=== PATIENT | female | born 1990 | race Caucasian/White ===

== ENCOUNTER 2016-12-19 00:21 | Emergency (ER) | payer MEDICARE, OTHER ==
[~2016-12-19] VITALS: Ht 157.5 cm; Wt 63.5 kg
[~2016-12-19 00:21] MED LIST: IBUPROFEN600 MG ORAL; NKM; PROVERA10 MG ORAL; RANITIDINE HCL150 MG ORAL; ZOFRAN ODT4 MG ORAL
[2016-12-19 01:47] VITALS: BP 120/80
--- NOTE | 2016-12-19 02:19 | Emergency Room Report ---
History of Present Illness General Chief Complaint: Eye Problems Source: Patient Present Illness HPI 26YOF with stye to left lower eyelid for 2 days. C.o irritation. Denies itch, drainage from eye. Denies FB. Doesnt wear contacts. Allergies: Coded Allergies: NO KNOWN DRUG ALLERGIES (Unverified Allergy, Unknown, 09/26/15) Patient History Past Medical History: none Past Surgical History: none Pertinent Family History: none Social History: Denies: alcohol use, drug use, smoking Last Menstrual Period: 11/09/16 Now: No : 0 Immunizations: UTD Reviewed Nursing Documentation: PMH: Agreed, PSxH: Agreed Nursing Documentation-PMH Past Medical History: No Stated History Review of Systems All Other Systems: negative except mentioned in HPI Physical Exam Vital Signs Date Time Temp Pulse Resp B/P Pulse Ox O2 Delivery O2 Flow Rate FiO2 12/19/16 00:30 97.3 93 20 98 Room Air 12/19/16 01:47 120/80 Sp02 EP Interpretation: reviewed, normal General Appearance: normal inspection, well appearing, no apparent distress, alert Head: normocephalic, atraumatic Eyes: bilateral eye EOMI, bilateral eye PERRL, bilateral eye other - Everion of left lower eyelid reveals midline stye Neck: normal inspection, full range of motion, supple, no bony tend Respiratory: normal inspection, lungs clear, normal breath sounds, no respiratory distress, no retraction, no wheezing Cardiovascular #1: regular rate, rhythm, no edema Gastrointestinal: normal inspection, normal bowel sounds, non tender, soft Genitourinary: no CVA tenderness Musculoskeletal: normal inspection, back normal, normal range of motion, Love' s Sign negative Neurologic: normal inspection, alert, oriented x3, responsive, steel erector apprentice III-XII nml as tested, motor strength/tone normal, speech normal Psychiatric: normal inspection, judgement/insight normal, mood/affect normal Skin: normal inspection, normal color, no rash Lymphatic: normal inspection Medical Decision Making Diagnostic Impression: Primary Impression: Hordeolum externum of left lower eyelid ER Course Advised hot towel compress QID for 7 days PMD followup for Optham referral for I&D if no improvement DC Last Vital Signs Date Time Temp Pulse Resp B/P Pulse Ox O2 Delivery O2 Flow Rate FiO2 12/19/16 01:47 97.3 20 120/80 98 Room Air 12/19/16 00:30 93 Status: improved Disposition: HOME, SELF-CARE Condition: Improved Referrals: NOT CHOSEN IPA/MD,REFERRING (PCP) Patient Instructions: Dayana Additional Instructions: - Apply warm compress to lower lid 4x a day for 15minutes at a time - Will resolve in 1 week GILMA DELGADO M.D. December 19, 2016 02:19
== END 2016-12-19 01:47 | disposition home or self-care (01) ==
LOC: EMR 00:49
DX: H00.015 Hordeolum externum left lower eyelid (principal)
CPT/HCPCS: 99282

== ENCOUNTER 2018-07-23 07:53 | Inpatient (IN) | payer MEDICARE, OTHER ==
[2018-07-23] VITALS (7 sets, daily range): BP systolic 118–135; BP diastolic 71–91
[~2018-07-23] VITALS: Ht 154.9 cm; Wt 68.0 kg
[2018-07-23] MEDS ORDERED: Albuterol ud Inhalation HHN ONE ×2 (08:15→10:15)
[2018-07-23] MEDS ORDERED: Ipratropium 0.02% Inh Soln 2.5ml UD HHN ONE (08:15)
[2018-07-23] MEDS ORDERED: Sodium Chloride 500ML 500 ML IV ONE (08:15)
[2018-07-23 08:37] LABS: BASOPHILS % (AUTO) 0.8 % (0.0-2.0); EOSINOPHILS % (AUTO) 5.7 % (0.0-3.0); HEMATOCRIT 40.8 % (37.0-47.0); HEMOGLOBIN 14.2 G/DL (12.0-16.0); LYMPHOCYTES % (AUTO) 14.5 % (20.0-45.0); MEAN CORPUSCULAR VOLUME 87 FL (80-99); MONOCYTES % (AUTO) 4.6 % (1.0-10.0); NEUTROPHILS % (AUTO) 74.4 % (45.0-75.0); PLATELET COUNT 298 K/UL (150-450); RED BLOOD COUNT 4.69 M/UL (4.20-5.40); RED CELL DISTRIBUTION WIDTH 10.8 % (11.6-14.8); WHITE BLOOD COUNT 14.4 K/UL (4.8-10.8)
[2018-07-23 08:44] LABS: ANION GAP 11 mmol/L (5-15); BLOOD UREA NITROGEN 8 mg/dL (7-18); CALCIUM 9.3 MG/DL (8.5-10.1); CARBON DIOXIDE 23 MMOL/L (21-32); CHLORIDE 104 MMOL/L (98-107); CREATININE 0.7 MG/DL (0.55-1.30); POTASSIUM 3.9 MMOL/L (3.5-5.1); SODIUM 138 MMOL/L (136-145)
[2018-07-23 08:57] LABS: ALANINE AMINOTRANSFERASE 77 U/L (12-78); ALBUMIN 4.1 G/DL (3.4-5.0); ALBUMIN/GLOBULIN RATIO 0.9 (1.0-2.7); ALKALINE PHOSPHATASE 78 U/L (46-116); ASPARTATE AMINO TRANSFERASE 28 U/L (15-37); BILIRUBIN,TOTAL 0.3 MG/DL (0.2-1.0); CREATINE KINASE 94 U/L (26-308)
--- NOTE | 2018-07-23 09:07 | Diagnostic Imaging Report ---
Indication: Shortness of breath Technique: One view of the chest Comparison: none Findings: Lungs and pleural spaces are clear. Heart size is normal Impression: No acute process
--- NOTE | 2018-07-23 09:26 | Emergency Room Report ---
History of Present Illness General Chief Complaint: Dyspnea/Respdistress Source: Patient Present Illness HPI Patient persist with complaints of 2 weeks of worsening upper respiratory infection symptoms runny nose cough over the past few days now she has had worsening breathing sensation wheezing Denies any previous history of asthma or lung issues Also has some midsternal heaviness with the cough Denies any neck pain or photophobia Intermittent fevers and chills Denies any recent travel denies any dysuria frequency Allergies: Coded Allergies: NO KNOWN DRUG ALLERGIES (Unverified Allergy, Unknown, 09/26/15) Patient History Past Medical History: see triage record Pertinent Family History: none Now: No Reviewed Nursing Documentation: PMH: Agreed; PSxH: Agreed Nursing Documentation-PMH Past Medical History: No History, Except For Review of Systems All Other Systems: negative except mentioned in HPI Physical Exam Vital Signs Date Time Temp Pulse Resp B/P (MAP) Pulse Ox O2 Delivery O2 Flow Rate FiO2 07/23/18 07:56 97.9 90 20 117/76 92 Room Air 07/23/18 08:05 3.0 07/23/18 08:05 98 Sp02 EP Interpretation: reviewed, abnormal - Initial pulse ox on room air is interpreted as low, after breathing treatment saturation is at 98% which is normal General Appearance: mild distress - Appears uncomfortable Head: normocephalic, atraumatic Eyes: bilateral eye PERRL, bilateral eye EOMI ENT: hearing grossly normal, normal pharynx, TMs + canals normal, uvula midline Neck: full range of motion, supple, no meningismus, no bony tend Respiratory: no accessory muscle use, wheezing, other - Tachypneic Cardiovascular #1: normal peripheral pulses, regular rate, rhythm, no edema, no gallop, no JVD, no murmur Gastrointestinal: normal bowel sounds, non tender, soft, no mass, no organomegaly, non-distended, no guarding, no hernia, no pulsatile mass, no rebound Genitourinary: no CVA tenderness Musculoskeletal: normal inspection Neurologic: oriented x3, responsive, master at arms III-XII nml as tested, motor strength/ tone normal, sensory intact Psychiatric: mood/affect normal Skin: normal color, no rash, warm/dry, palpation normal Lymphatic: normal inspection, no adenopathy Medical Decision Making Diagnostic Impression: Primary Impression: Reactive airway disease Additional Impression: Dyspnea ER Course Patient is a fairly complex patient with multiple differential to consideration including but not limited to cardiac cardiopulmonary and vascular emergencies Patient's x-ray does not reveal any obvious acute pathology Breathing treatments have significantly improved her symptoms Patient's d-dimer was negative does not have any other risk factors for pulmonary embolism Remained normal sinus prior to albuterol treatment Therefore further imaging for pulmonary embolism has not been made Given the lack of full clearance given the patient's lack of any previous history of lung disease and ongoing pathology patient will require further inpatient care and reevaluation as needed, Labs Test 07/23/18 08:21 07/23/18 08:50 White Blood Count 14.4 K/UL (4.8-10.8) Red Blood Count 4.69 M/UL (4.20-5.40) Hemoglobin 14.2 G/DL (12.0-16.0) Hematocrit 40.8 % (37.0-47.0) Mean Corpuscular Volume 87 FL (80-99) Mean Corpuscular Hemoglobin 30.3 PG (27.0-31.0) Mean Corpuscular Hemoglobin Concent 34.8 G/DL (32.0-36.0) Red Cell Distribution Width 10.8 % (11.6-14.8) Platelet Count 298 K/UL (150-450) Mean Platelet Volume 7.2 FL (6.5-10.1) Neutrophils (%) (Auto) 74.4 % (45.0-75.0) Lymphocytes (%) (Auto) 14.5 % (20.0-45.0) Monocytes (%) (Auto) 4.6 % (1.0-10.0) Eosinophils (%) (Auto) 5.7 % (0.0-3.0) Basophils (%) (Auto) 0.8 % (0.0-2.0) D-Dimer 0.19 mg/L FEU (0.00-0.49) Sodium Level 138 MMOL/L (136-145) Potassium Level 3.9 MMOL/L (3.5-5.1) Chloride Level 104 MMOL/L (98-107) Carbon Dioxide Level 23 MMOL/L (21-32) Anion Gap 11 mmol/L (5-15) Blood Urea Nitrogen 8 mg/dL (7-18) Creatinine 0.7 MG/DL (0.55-1.30) Estimat Glomerular Filtration Rate > 60 mL/min (>60) Glucose Level 119 MG/DL (74-106) Calcium Level 9.3 MG/DL (8.5-10.1) Total Bilirubin 0.3 MG/DL (0.2-1.0) Aspartate Amino Transf (AST/SGOT) 28 U/L (15-37) Alanine Aminotransferase (ALT/SGPT) 77 U/L (12-78) Alkaline Phosphatase 78 U/L (46-116) Total Creatine Kinase 94 U/L (26-308) Creatine Kinase MB 1.0 NG/ML (0.0-3.6) Creatine Kinase MB Relative Index 1.0 Total Protein 8.6 G/DL (6.4-8.2) Albumin 4.1 G/DL (3.4-5.0) Globulin 4.5 g/dL Albumin/Globulin Ratio 0.9 (1.0-2.7) Lipase 90 U/L (73-393) Urine HCG, Qualitative Negative (NEGATIVE) Urine Opiates Screen Negative (NEGATIVE) Urine Barbiturates Screen Negative (NEGATIVE) Phencyclidine (PCP) Screen Negative (NEGATIVE) Urine Amphetamines Screen Negative (NEGATIVE) Urine Benzodiazepines Screen Negative (NEGATIVE) Urine Cocaine Screen Negative (NEGATIVE) Urine Marijuana (THC) Screen Positive (NEGATIVE) EKG Diagnostic Results Rate: normal Rhythm: NSR ST Segments: no acute changes Rhythm Strip Diag. Results EP Interpretation: yes Rate: 88 Rhythm: NSR, no PVC's, no ectopy Chest X-Ray Diagnostic Results Chest X-Ray Diagnostic Results : Chest X-Ray Ordered: Yes # of Views/Limited/Complete: 1 View Indication: Shortness of Breath EP Interpretation: Yes Interpretation: no consolidation, no effusion, no pneumothorax, no acute cardiopulmonary disease Impression: No acute disease Electronically Signed by: Luciano Coker DO Last Vital Signs Date Time Temp Pulse Resp B/P (MAP) Pulse Ox O2 Delivery O2 Flow Rate FiO2 07/23/18 08:49 105 20 100 Nasal Cannula 2.0 28 07/23/18 08:05 97.7 118/78 Status: improved Disposition: ADMITTED INPATIENT Condition: Serious Referrals: NOT CHOSEN IPA/,REFERRING (PCP) Luciano Coker DO Jul 23, 2018 09:26
[2018-07-23] MEDS ORDERED: DiphenhydrAMINE 50mg/ml Inj IVP ONE (12:00)
[2018-07-23] MEDS ORDERED: Promethazine/Codeine 5ml UD ORAL ONE (12:00)
[2018-07-23] MEDS ORDERED: Milk of Magnesia 30ml Ud ORAL PRN (16:15)
[2018-07-23] MEDS: cefTRIAXone 1 GM in D5W 55 ML IVPB SCH (17:40)
[2018-07-23] MEDS: Promethazine/Codeine 5ml UD ORAL PRN ×2 (17:40→21:27)
[2018-07-23] MEDS: Albuterol/Ipratropium 3ml neb HHN SCH ×2 (20:01→23:29)
[2018-07-23] MEDS: Heparin 5000 units/ml inj SUBQ SCH (21:27)
[2018-07-24] VITALS: BP 136/84
[2018-07-24] MEDS: Albuterol/Ipratropium 3ml neb HHN SCH ×6 (03:11→23:23)
[2018-07-24 04:00] VITALS: BP 116/79
[2018-07-24 08:00] VITALS: BP 126/86
[2018-07-24] MEDS: Heparin 5000 units/ml inj SUBQ SCH ×2 (09:00→20:18)
--- NOTE | 2018-07-24 09:15 | History & Physical ---
History and Physical History & Physicial Patient presents with complaints of 2 weeks of worsening upper respiratory tract infection with runny nose and cough over the past few days Patient with wheezing and tightness. patient denies Asthma history Intermittent fevers and chills Denies any recent travel denies any dysuria frequency Allergies: NO KNOWN DRUG ALLERGIES (Unverified Allergy, Unknown, 09/26/15) Past Medical History: none Pertinent Family History: none Reviewed of Systems: as above Physical exam WDWN NAD reduced breath sounds bilaterally with some wheeze [id number] without MRG NABS nontender no HSM no CCE nonfocal Labs Test 07/23/18 08:21 07/23/18 08:50 White Blood Count 14.4 K/UL (4.8-10.8) Red Blood Count 4.69 M/UL (4.20-5.40) Hemoglobin 14.2 G/DL (12.0-16.0) Hematocrit 40.8 % (37.0-47.0) Mean Corpuscular Volume 87 FL (80-99) Mean Corpuscular Hemoglobin 30.3 PG (27.0-31.0) Mean Corpuscular Hemoglobin Concent 34.8 G/DL (32.0-36.0) Red Cell Distribution Width 10.8 % (11.6-14.8) Platelet Count 298 K/UL (150-450) Mean Platelet Volume 7.2 FL (6.5-10.1) Neutrophils (%) (Auto) 74.4 % (45.0-75.0) Lymphocytes (%) (Auto) 14.5 % (20.0-45.0) Monocytes (%) (Auto) 4.6 % (1.0-10.0) Eosinophils (%) (Auto) 5.7 % (0.0-3.0) Basophils (%) (Auto) 0.8 % (0.0-2.0) D-Dimer 0.19 mg/L FEU (0.00-0.49) Sodium Level 138 MMOL/L (136-145) Potassium Level 3.9 MMOL/L (3.5-5.1) Chloride Level 104 MMOL/L (98-107) Carbon Dioxide Level 23 MMOL/L (21-32) Anion Gap 11 mmol/L (5-15) Blood Urea Nitrogen 8 mg/dL (7-18) Creatinine 0.7 MG/DL (0.55-1.30) Estimat Glomerular Filtration Rate > 60 mL/min (>60) Glucose Level 119 MG/DL (74-106) Calcium Level 9.3 MG/DL (8.5-10.1) Total Bilirubin 0.3 MG/DL (0.2-1.0) Aspartate Amino Transf (AST/SGOT) 28 U/L (15-37) Alanine Aminotransferase (ALT/SGPT) 77 U/L (12-78) Alkaline Phosphatase 78 U/L (46-116) Total Creatine Kinase 94 U/L (26-308) Creatine Kinase MB 1.0 NG/ML (0.0-3.6) Creatine Kinase MB Relative Index 1.0 Total Protein 8.6 G/DL (6.4-8.2) Albumin 4.1 G/DL (3.4-5.0) Globulin 4.5 g/dL Albumin/Globulin Ratio 0.9 (1.0-2.7) Lipase 90 U/L (73-393) Urine HCG, Qualitative Negative (NEGATIVE) Urine Opiates Screen Negative (NEGATIVE) Urine Barbiturates Screen Negative (NEGATIVE) Phencyclidine (PCP) Screen Negative (NEGATIVE) Urine Amphetamines Screen Negative (NEGATIVE) Urine Benzodiazepines Screen Negative (NEGATIVE) Urine Cocaine Screen Negative (NEGATIVE) Urine Marijuana (THC) Screen Positive (NEGATIVE) IMPRESSION acute bronchospasm wheezing ? new onset Asthma PLAN IV solumedrol respiratory care oxygen will need dalton castillo, zpak on discharge Chandu Funes MD Jul 24, 2018 09:15
[2018-07-24] MEDS: Levofloxacin 500mg tab ORAL SCH (10:01)
[2018-07-24] MEDS: cefTRIAXone 1 GM in D5W 55 ML IVPB SCH (10:01)
[2018-07-24 12:00] VITALS: BP 138/93
[2018-07-24 16:00] VITALS: BP 130/90
--- NOTE | 2018-07-24 16:19 | Cardiology Report ---
APPROVED REPORT EKG Measurement Heart [id number] Normal sinus rhythm Normal ECG
[2018-07-24 20:00] VITALS: BP 138/87
[2018-07-25] VITALS: BP 120/83
[2018-07-25] MEDS: Albuterol/Ipratropium 3ml neb HHN SCH ×6 (03:40→23:06)
[2018-07-25 04:00] VITALS: BP 111/79
[2018-07-25 08:00] VITALS: BP 105/72
[2018-07-25] MEDS: Heparin 5000 units/ml inj SUBQ SCH ×2 (09:00→20:36)
[2018-07-25] MEDS: cefTRIAXone 1 GM in D5W 55 ML IVPB SCH (09:34)
[2018-07-25] MEDS: Levofloxacin 500mg tab ORAL SCH (09:35)
[2018-07-25 12:00] VITALS: BP 129/91
[2018-07-25] MEDS: Promethazine/Codeine 5ml UD ORAL PRN (14:21)
--- NOTE | 2018-07-25 15:24 | Pulmonology Progress Note ---
Assessment/Plan Assessment/Plan Pulmonary Progress Note Patient presents with complaints of 2 weeks of worsening upper respiratory tract infection with runny nose and cough over the past few days Patient with wheezing and tightness. patient denies Asthma history Intermittent fevers and chills Denies any recent travel denies any dysuria frequency Less SOB Allergies: NO KNOWN DRUG ALLERGIES (Unverified Allergy, Unknown, 09/26/15) Past Medical History: none Pertinent Family History: none Reviewed of Systems: as above Physical exam WDWN NAD reduced breath sounds bilaterally with some wheeze [id number] without MRG NABS nontender no HSM no CCE nonfocal Labs Test 07/23/18 08:21 07/23/18 08:50 White Blood Count 14.4 K/UL (4.8-10.8) Red Blood Count 4.69 M/UL (4.20-5.40) Hemoglobin 14.2 G/DL (12.0-16.0) Hematocrit 40.8 % (37.0-47.0) Mean Corpuscular Volume 87 FL (80-99) Mean Corpuscular Hemoglobin 30.3 PG (27.0-31.0) Mean Corpuscular Hemoglobin Concent 34.8 G/DL (32.0-36.0) Red Cell Distribution Width 10.8 % (11.6-14.8) Platelet Count 298 K/UL (150-450) Mean Platelet Volume 7.2 FL (6.5-10.1) Neutrophils (%) (Auto) 74.4 % (45.0-75.0) Lymphocytes (%) (Auto) 14.5 % (20.0-45.0) Monocytes (%) (Auto) 4.6 % (1.0-10.0) Eosinophils (%) (Auto) 5.7 % (0.0-3.0) Basophils (%) (Auto) 0.8 % (0.0-2.0) D-Dimer 0.19 mg/L FEU (0.00-0.49) Sodium Level 138 MMOL/L (136-145) Potassium Level 3.9 MMOL/L (3.5-5.1) Chloride Level 104 MMOL/L (98-107) Carbon Dioxide Level 23 MMOL/L (21-32) Anion Gap 11 mmol/L (5-15) Blood Urea Nitrogen 8 mg/dL (7-18) Creatinine 0.7 MG/DL (0.55-1.30) Estimat Glomerular Filtration Rate > 60 mL/min (>60) Glucose Level 119 MG/DL (74-106) Calcium Level 9.3 MG/DL (8.5-10.1) Total Bilirubin 0.3 MG/DL (0.2-1.0) Aspartate Amino Transf (AST/SGOT) 28 U/L (15-37) Alanine Aminotransferase (ALT/SGPT) 77 U/L (12-78) Alkaline Phosphatase 78 U/L (46-116) Total Creatine Kinase 94 U/L (26-308) Creatine Kinase MB 1.0 NG/ML (0.0-3.6) Creatine Kinase MB Relative Index 1.0 Total Protein 8.6 G/DL (6.4-8.2) Albumin 4.1 G/DL (3.4-5.0) Globulin 4.5 g/dL Albumin/Globulin Ratio 0.9 (1.0-2.7) Lipase 90 U/L (73-393) Urine HCG, Qualitative Negative (NEGATIVE) Urine Opiates Screen Negative (NEGATIVE) Urine Barbiturates Screen Negative (NEGATIVE) Phencyclidine (PCP) Screen Negative (NEGATIVE) Urine Amphetamines Screen Negative (NEGATIVE) Urine Benzodiazepines Screen Negative (NEGATIVE) Urine Cocaine Screen Negative (NEGATIVE) Urine Marijuana (THC) Screen Positive (NEGATIVE) IMPRESSION acute bronchospasm wheezing New onset Asthma Much Improved PLAN IV solumedrol respiratory care oxygen will need breo, medrol ham, zpak on discharge Subjective ROS Limited/Unobtainable: No Allergies: Coded Allergies: NO KNOWN DRUG ALLERGIES (Unverified Allergy, Unknown, 09/26/15) Objective Last 24 Hour Vital Signs Date Time Temp Pulse Resp B/P (MAP) Pulse Ox O2 Delivery O2 Flow Rate FiO2 07/25/18 12:07 115 18 97 Room Air 21 07/25/18 12:00 96.5 115 16 129/91 (104) 94 07/25/18 11:57 110 18 95 Nasal Cannula 2.0 28 07/25/18 11:40 143 07/25/18 09:00 Nasal Cannula 2.0 07/25/18 08:49 98 20 99 Room Air 21 07/25/18 08:40 98 Nasal Cannula 2.0 28 07/25/18 08:40 96 18 98 Nasal Cannula 2.0 28 07/25/18 08:40 Nasal Cannula 2.0 28 07/25/18 08:00 96.6 107 16 105/72 (83) 95 07/25/18 07:50 87 07/25/18 04:00 97.5 91 18 111/79 (90) 98 07/25/18 04:00 102 07/25/18 03:51 107 20 98 Room Air 21 07/25/18 03:40 93 18 95 Nasal Cannula 2.0 28 07/25/18 00:00 111 07/25/18 00:00 98.3 96 19 120/83 (95) 97 07/24/18 23:33 110 20 98 Nasal Cannula 2.0 28 07/24/18 23:23 95 20 97 Nasal Cannula 2.0 28 07/24/18 21:00 Nasal Cannula 2.0 07/24/18 20:00 98.5 99 18 138/87 (104) 98 07/24/18 20:00 104 07/24/18 19:44 100 20 99 Nasal Cannula 2.0 28 07/24/18 19:34 103 20 97 Nasal Cannula 2.0 28 07/24/18 19:34 97 Nasal Cannula 2.0 28 07/24/18 19:34 Nasal Cannula 2.0 28 07/24/18 16:00 98.1 123 18 130/90 (103) 95 07/24/18 15:52 138 Intake and Output 07/24/18 07/25/18 19:00 07:00 Intake Total 480 ml 280 ml Balance 480 ml 280 ml Intake Oral 480 ml Other 280 ml # Voids 5 2 Microbiology Date/Time Source Procedure Growth Status 07/23/18 08:21 Blood Blood Culture - Preliminary NO GROWTH AFTER 24 HOURS Resulted 07/23/18 08:15 Blood Blood Culture - Preliminary NO GROWTH AFTER 24 HOURS Resulted 07/23/18 09:39 Nasal Nares Influenza Types A,B Antigen (BRUCE) - Final Complete Current Medications Medications (Trade) Dose Ordered Sig/Leeroy Route PRN Reason Start Time Stop Time Status Last Admin Dose Admin Acetaminophen (Tylenol) 650 mg Q4H PRN ORAL Mild Pain/Temp > 100.5 07/23/18 16:15 08/22/18 16:14 07/24/18 23:11 Al Hydroxide/Mg Hydroxide (Mylanta) 30 ml Q4H PRN ORAL Heart Burn 07/23/18 16:15 08/22/18 16:14 07/23/18 18:38 Albuterol/ Ipratropium (Albuterol/ Ipratropium) 3 ml Q4HRT HHN 07/23/18 19:00 07/28/18 18:59 07/25/18 11:57 Ceftriaxone Sodium 1 gm/ Dextrose 55 ml @ 110 mls/hr DAILY IVPB 07/23/18 17:00 07/30/18 16:59 07/25/18 09:34 Heparin Sodium (Porcine) (Heparin 5000 units/ml) 5,000 units EVERY 12 HOURS SUBQ 07/23/18 21:00 08/22/18 20:59 07/25/18 09:00 Levofloxacin (Levaquin) 500 mg DAILY ORAL 07/24/18 09:00 07/30/18 09:01 07/25/18 09:35 Magnesium Hydroxide (Mom) 30 ml DAILYPRN PRN ORAL Constipation 07/23/18 16:15 08/22/18 16:14 Pantoprazole (Protonix) 40 mg DAILY ORAL 07/24/18 09:00 08/23/18 08:59 07/25/18 09:35 Promethazine HCl/ Codeine (Phenergan with Codeine) 5 ml Q4H PRN ORAL For Cough 07/23/18 17:45 08/22/18 17:44 07/25/18 14:21 Nelson Carey MD Jul 25, 2018 15:24
[2018-07-25 16:00] VITALS: BP 136/84
[2018-07-25 20:00] VITALS: BP 128/87
[2018-07-26] VITALS: BP 124/79
[2018-07-26] MEDS: Promethazine/Codeine 5ml UD ORAL PRN ×2 (01:56→10:27)
[2018-07-26] MEDS: Albuterol/Ipratropium 3ml neb HHN SCH ×4 (03:20→15:15)
[2018-07-26 03:53] VITALS: BP 121/75
[2018-07-26 08:00] VITALS: BP 120/67
[2018-07-26] MEDS: Heparin 5000 units/ml inj SUBQ SCH (08:59)
[2018-07-26] MEDS: cefTRIAXone 1 GM in D5W 55 ML IVPB SCH (09:00)
[2018-07-26] MEDS: Levofloxacin 500mg tab ORAL SCH (09:00)
[2018-07-26 12:00] VITALS: BP 130/81
--- NOTE | 2018-07-26 15:18 | Pulmonology Progress Note ---
Assessment/Plan Assessment/Plan Pulmonary Progress Note Patient presents with complaints of 2 weeks of worsening upper respiratory tract infection with runny nose and cough over the past few days Patient with wheezing and tightness. patient denies Asthma history Intermittent fevers and chills Denies any recent travel denies any dysuria frequency Less SOB, O2 sats >=94% RA Allergies: NO KNOWN DRUG ALLERGIES (Unverified Allergy, Unknown, 09/26/15) Past Medical History: none Pertinent Family History: none Reviewed of Systems: as above Physical exam WDWN NAD reduced breath sounds bilaterally with some wheeze [id number] without MRG NABS nontender no HSM no CCE nonfocal Labs Test 07/23/18 08:21 07/23/18 08:50 White Blood Count 14.4 K/UL (4.8-10.8) Red Blood Count 4.69 M/UL (4.20-5.40) Hemoglobin 14.2 G/DL (12.0-16.0) Hematocrit 40.8 % (37.0-47.0) Mean Corpuscular Volume 87 FL (80-99) Mean Corpuscular Hemoglobin 30.3 PG (27.0-31.0) Mean Corpuscular Hemoglobin Concent 34.8 G/DL (32.0-36.0) Red Cell Distribution Width 10.8 % (11.6-14.8) Platelet Count 298 K/UL (150-450) Mean Platelet Volume 7.2 FL (6.5-10.1) Neutrophils (%) (Auto) 74.4 % (45.0-75.0) Lymphocytes (%) (Auto) 14.5 % (20.0-45.0) Monocytes (%) (Auto) 4.6 % (1.0-10.0) Eosinophils (%) (Auto) 5.7 % (0.0-3.0) Basophils (%) (Auto) 0.8 % (0.0-2.0) D-Dimer 0.19 mg/L FEU (0.00-0.49) Sodium Level 138 MMOL/L (136-145) Potassium Level 3.9 MMOL/L (3.5-5.1) Chloride Level 104 MMOL/L (98-107) Carbon Dioxide Level 23 MMOL/L (21-32) Anion Gap 11 mmol/L (5-15) Blood Urea Nitrogen 8 mg/dL (7-18) Creatinine 0.7 MG/DL (0.55-1.30) Estimat Glomerular Filtration Rate > 60 mL/min (>60) Glucose Level 119 MG/DL (74-106) Calcium Level 9.3 MG/DL (8.5-10.1) Total Bilirubin 0.3 MG/DL (0.2-1.0) Aspartate Amino Transf (AST/SGOT) 28 U/L (15-37) Alanine Aminotransferase (ALT/SGPT) 77 U/L (12-78) Alkaline Phosphatase 78 U/L (46-116) Total Creatine Kinase 94 U/L (26-308) Creatine Kinase MB 1.0 NG/ML (0.0-3.6) Creatine Kinase MB Relative Index 1.0 Total Protein 8.6 G/DL (6.4-8.2) Albumin 4.1 G/DL (3.4-5.0) Globulin 4.5 g/dL Albumin/Globulin Ratio 0.9 (1.0-2.7) Lipase 90 U/L (73-393) Urine HCG, Qualitative Negative (NEGATIVE) Urine Opiates Screen Negative (NEGATIVE) Urine Barbiturates Screen Negative (NEGATIVE) Phencyclidine (PCP) Screen Negative (NEGATIVE) Urine Amphetamines Screen Negative (NEGATIVE) Urine Benzodiazepines Screen Negative (NEGATIVE) Urine Cocaine Screen Negative (NEGATIVE) Urine Marijuana (THC) Screen Positive (NEGATIVE) IMPRESSION acute bronchospasm wheezing New onset Asthma Much Improved PLAN DC today, has prescription respiratory care oxygen will need breo, medrol ham, zpak on discharge Subjective ROS Limited/Unobtainable: No Allergies: Coded Allergies: NO KNOWN DRUG ALLERGIES (Unverified Allergy, Unknown, 09/26/15) Objective Last 24 Hour Vital Signs Date Time Temp Pulse Resp B/P (MAP) Pulse Ox O2 Delivery O2 Flow Rate FiO2 07/26/18 12:00 97.0 108 22 130/81 (97) 92 07/26/18 11:37 101 07/26/18 10:53 84 20 99 Nasal Cannula 2.0 28 07/26/18 10:46 79 18 96 Room Air 21 07/26/18 08:20 Nasal Cannula 2.0 07/26/18 08:00 97.2 95 18 120/67 (84) 95 07/26/18 07:42 95 07/26/18 07:22 Room Air 21 07/26/18 07:22 Room Air 21 07/26/18 07:21 96 Room Air 21 07/26/18 07:21 Room Air 21 07/26/18 04:00 94 07/26/18 03:53 98.0 86 18 121/75 (90) 96 07/26/18 03:34 92 18 100 Room Air 21 07/26/18 03:21 83 18 93 Room Air 21 07/26/18 00:00 98.0 100 18 124/79 (94) 96 07/26/18 00:00 99 07/25/18 23:15 87 18 99 Room Air 21 07/25/18 23:06 93 18 96 Room Air 21 07/25/18 21:00 Nasal Cannula 2.0 07/25/18 20:06 Room Air 21 07/25/18 20:00 98.0 100 18 128/87 (101) 96 07/25/18 20:00 99 07/25/18 19:22 98 18 95 Room Air 21 07/25/18 19:10 96 Room Air 21 07/25/18 19:08 95 18 99 Room Air 21 07/25/18 16:00 97.9 99 15 136/84 (101) 95 07/25/18 15:46 98 18 99 Room Air 21 07/25/18 15:43 90 07/25/18 15:35 94 17 95 Room Air 21 Intake and Output 07/25/18 07/26/18 18:59 06:59 Intake Total 800 ml 300 ml Balance 800 ml 300 ml Intake Oral 800 ml 300 ml # Voids 4 3 Current Medications Medications (Trade) Dose Ordered Sig/Leeroy Route PRN Reason Start Time Stop Time Status Last Admin Dose Admin Acetaminophen (Tylenol) 650 mg Q4H PRN ORAL Mild Pain/Temp > 100.5 07/23/18 16:15 08/22/18 16:14 07/24/18 23:11 Al Hydroxide/Mg Hydroxide (Mylanta) 30 ml Q4H PRN ORAL Heart Burn 07/23/18 16:15 08/22/18 16:14 07/23/18 18:38 Albuterol/ Ipratropium (Albuterol/ Ipratropium) 3 ml Q4HRT HHN 07/23/18 19:00 07/28/18 18:59 07/26/18 10:53 Ceftriaxone Sodium 1 gm/ Dextrose 55 ml @ 110 mls/hr DAILY IVPB 07/23/18 17:00 07/30/18 16:59 07/26/18 09:00 Heparin Sodium (Porcine) (Heparin 5000 units/ml) 5,000 units EVERY 12 HOURS SUBQ 07/23/18 21:00 08/22/18 20:59 07/25/18 09:00 Levofloxacin (Levaquin) 500 mg DAILY ORAL 07/24/18 09:00 07/30/18 09:01 07/26/18 09:00 Magnesium Hydroxide (Mom) 30 ml DAILYPRN PRN ORAL Constipation 07/23/18 16:15 08/22/18 16:14 Pantoprazole (Protonix) 40 mg DAILY ORAL 07/24/18 09:00 08/23/18 08:59 07/26/18 09:00 Promethazine HCl/ Codeine (Phenergan with Codeine) 5 ml Q4H PRN ORAL For Cough 07/23/18 17:45 08/22/18 17:44 07/26/18 10:27 Nelson Carey MD Jul 26, 2018 15:18
[2018-07-26] MEDS ORDERED: BREO ELLIPTA 21 EACH IH (15:54)
[2018-07-26] MEDS ORDERED: PROAIR HFA8.5 GM INH (15:54)
[2018-07-26] MEDS ORDERED: MEDROL DOSEPAK4 MG ORAL (15:56)
--- NOTE | 2018-07-28 09:36 | Discharge Summary ---
Discharge Summary Discharge Summary _ DATE OF ADMISSION: DATE OF DISCHARGE: 07/25/2018 DISCHARGED BY: Dr. Carey REASON FOR ADMISSION: 28 years old female without significant past medical history , presented with 2 weeks of worsening upper respiratory infection with runny nose and cough over the past few days. Patient reported chest tightness and wheezing. Patient reported intermittent fevers and chills. Patient denied asthma history. Patient denied any recent traveling. Patient denies dysuria or frequency. Vital signs revealed no fever. Patient required supplemental oxygen at 3 L via nasal cannula with pulse oximetry readings 92%. Laboratory workup revealed leukocytosis WBC 14.4. Electrolytes and renal parameters were stable. Urine test was negative. Urine toxicology screen was positive for marijuana. Chest x-ray revealed no acute cardiopulmonary pathology. Patient admitted with diagnosis of acute bronchospasm, wheezing, possible new onset of asthma. HOSPITAL COURSE: Patient was admitted to telemetry floor. Supplemental oxygen provided to keep pulse oximetry above 90%. Pulmonary toilet provided with nebulizing therapy around the clock and as needed. Patient was started on intravenous steroids with gradual tapering down. Patient was started on empiric antibiotic. Blood cultures were negative. Influenza screen test was negative. Antitussive provided as needed DVT and GI prophylaxis provided. Patient was slowly improving. Patient was able to be weaned from oxygen . Pulse oximetry was stable on room air. Patient remained afebrile. Patient was stable for discharge home on Medrol Dosepak ,Z-Erick , Breo inhaler, and albuterol inhaler as needed. FINAL DIAGNOSES: Acute bronchospasm Probably new onset of asthma DISCHARGE MEDICATIONS: See Medication Reconciliation list. DISCHARGE INSTRUCTIONS: Patient was discharged home . Patient to follow-up with [facility] after symptom resolution for outpatient workup of possible new onset of asthma. I have been assigned to dictate discharge summary for this account. I was not involved in the patient's management. Franci Ott NP Jul 28, 2018 09:36
== END 2018-07-26 16:37 | disposition home or self-care (01) | DRG 203 ==
LOC: EMR 08:30 → EDBEDREQ 10:15 → 2E 13:10 → UNDOADMOB 13:10 → OBSVTOIN 13:10 → EDBEDREQ 13:21 → INTOOBSV 16:06 → OBSVTOIN 16:06
DX: J45.909 Unspecified asthma, uncomplicated (principal); J06.9 Acute upper respiratory infection, unspecified; F17.200 Nicotine dependence, unspecified, uncomplicated
CPT/HCPCS: 36415; 71045; 80053; 80307; 81025; 82550; 82553; 83690; 85025; 85379; 86710; 87040; 93005; 94640; 94664; 94760; 96365; 96375; 99284; J7620